=== PATIENT | male | born 2005 | race Caucasian/White ===

== ENCOUNTER 2025-06-30 16:11 | Emergency (ER) | payer OTHER ==
[~2025-06-30] VITALS: Ht 172.7 cm; Wt 67.7 kg
[2025-06-30 17:42] LABS: Trichomonas vaginalis (AMP) NOT DETECTED (NEGATIVE)
[2025-06-30 18:06] LABS: GC DNA AMPLIFICATION NEGATIVE (NEGATIVE)
[2025-06-30] MEDS ORDERED: DOXY100T PO (18:29)
[2025-06-30] MEDS: DOXYCYCLINE HYCLATE 100 MG TABLET PO ONE (18:36)
[2025-06-30 18:37] VITALS: BP 141/73; TEMP 98.5; O2SAT 98
== END 2025-06-30 18:40 | disposition home or self-care (01) ==
LOC: M ED 16:11
DX: A74.9 Chlamydial infection, unspecified (principal); F17.200 Nicotine dependence, unspecified, uncomplicated